=== PATIENT | female | born 1980 | race Caucasian/White ===

== ENCOUNTER 2022-10-25 09:50 | Outpatient (CLI) | payer BC, SELFPAY ==
--- NOTE | ~2022-10-25 | MM_ITS ---
EXAMINATION: MM screening jerrod BI w drake HISTORY: Screening mammogram TECHNIQUE: Craniocaudal and mediolateral oblique 3-D tomosynthesis images were obtained and synthetic 2-D images were generated. Bilateral rotated lateral CC views. CAD analysis was submitted and interp reted. COMPARISON: No prior mammogram is available for comparison at this institution. BREAST PARENCHYMAL COMPOSITION: The breasts are extremely dense, which lowers the sensitivity of mamm ography. FINDINGS: There is no evidence of suspicious mass, calcification, or architectural distortion to sugg est malignancy in either breast. There has been no suspicious interval change. IMPRESSION: 1. No mammographic evidence of malignancy. 2. Recommend routine screening mammography in one year. BI-RADS Category 1: Negative Reviewed, dictated and finalized at location A. [employer]
== END 2022-10-25 09:51 | disposition home or self-care (01) ==
PROVIDERS: Visit Provider Obstetrics & Gynecology
DX: Z12.31 Encounter for screening mammogram for malignant neoplasm of breast (principal)
CPT/HCPCS: 77063; 77067

== ENCOUNTER 2023-01-13 00:22 | Day surgery (SDC) | payer OTHER, SELFPAY ==
[2023-01-08 12:03] VITALS: BMI 20.5
--- NOTE | 2023-01-08 12:13 | PC.NURSE ---
Report to the Outpatient Waiting Room, entrance under the green pavilion located off [facility], at time 0830 on date 01/13/23. Planned Procedure Time: 1030. Time changes happen often and if your time is changed the preop area will call you the afternoon before. - You and your visitor will be asked to self-screen and do not enter if you have any COVID symptoms. - Only one visitor is requested with a max of two and NO children visitors are allowed at this time. - The patient visitor may be requested to leave or wait in car when not with patient due to distancing restrictions. - A mask is optional within the hospital at this time. Patients may have clear liquids (water, carbonated beverages, clear teas, apple juice) until 3 hours prior to surgery with a maximum of 20 ounces. - No food from midnight until time of surgery Take the following medications with a SIP of water the morning of surgery: BUPROPION DO NOT STOP ANY OF YOUR OTHER PRESCRIPTION MEDICATIONS PRIOR TO SURGERY EXCEPT THE FOLLOWING Medications to discontinue per physician: N/A Date to take last dose: N/A Please no make-up, nail frisian, hairspray, perfume, deodorant, or body powder the day of surgery. No jewelry (including any body piercings) or valuables the day of surgery, leave them at home. Please take a shower or bath the night before, or the morning of, surgery with an antibacterial soap. Wear comfortable, loose fitting clothing. - Jewelry must be removed prior to entering the operating room. Rings and piercings that are not removed may be cut off. - The hospital will not accept responsibility for valuables. - Please leave all valuables, including medications, at home the day of surgery. If you are going home after surgery, a licensed company tanker truck driver must drive you home. - NO public transportation without another adult if you receive anesthesia. - We recommend that an adult stay with you for 24 hours following discharge. - We also recommend that you do not drive, make important decision, drink alcoholic beverages, or take any drugs that were not prescribed by your health care provider for at least 24 hours after your discharge time. Follow any additional instructions given to you from your surgeon. If you or anyone in your household have experienced Covid symptoms in the past week, please notify your surgeon or the nurse liaison at the phone number below for possible testing. Telephone instructions given to PT - FLORENCE RUSHING and asked if any additional questions and then verbalized understanding. Patient advised to call surgeon office or pre surgery nurse liaison [phone] if any additional questions.
--- NOTE | 2023-01-12 09:12 | WPDANESEPPF ---
Anes - Initial Pre Proc Eval Procedure: Operation Date: 01/13/23 11:30 Proposed Procedures p Bilateral Breast Augmentation - Derek Parmar MD Date/Time: 01/12/23 09:12 Surgeon: Derek Parmar MD Pre Op Diagnosis: micromastia Patient Data Age: 42 Gender: F Height: 1.65 m Weight: 55.8 kg Allergies Allergy/AdvReac Type Severity Reaction Status Date / Time No Known Allergies Allergy Verified 01/13/23 10:13 Home Medications Medication Instructions Recorded Confirmed Type bupropion HCl 300 mg 24 hr tablet, 300 mg PO DAILY 01/08/23 01/08/23 History extended release norethindrone acetate 1 mg-ethinyl 1 tablet PO DAILY 01/08/23 01/08/23 History estradiol 20 mcg tablet (Microgestin) plecanatide 3 mg tablet (Trulance) 3 mg PO DAILY 01/08/23 01/08/23 History Patient hx anesthesia problems: none Family hx anesthesia problems: hx of malignant hyperthermia Results Review: All pre-operative results and documents have been reviewed as part of the pre-operative evaluation. [facility] Past Medical History Medical History (Updated 01/12/23 @ 09:13 by Kristian Javier DO) Anxiety Depression Family history of malignant hyperthermia Social History Social History Smoking status: Never smoker Alcohol intake: current Alcohol use details: 2/MONTH Substance use: never Substance use type: does not use Living arrangements: with family Spiritual care concerns: No Anes - Eval Final PreProcedure Day of Procedure 01/12/23 09:12 Patient weight: normal Heart: regular rate and rhythm Lungs: clear to auscultation and normal air movement Airway: Mallampati scale class II Neurological: alert and oriented Last oral intake: >/= 8 hours ASA classification: II Emergent: no Anesthetic plan: proceed Anesthesia type and monitoring: general GIVS and standard monitoring Results Review: All pre-operative results and documents have been reviewed as part of the pre-operative evaluation. Informed Consent: The patient's anesthetic plan and its attendant risks and benefits were discussed with the patient/family/POA. Questions were solicited and answers provided to the satisfaction of the patient/family/POA.
[2023-01-13] MEDS: LACTATED RINGERS 1,000 ML 30 ML IV CONT ×2 (09:50→11:28)
--- NOTE | 2023-01-13 09:51 | WPDHPUPDATE1 ---
History and Physical Update Update Date/Time: 01/13/23 09:51 History and Physical has been reviewed, including an updated exam of the patient. There are NO changes in the patient's condition. Risks, benefits, and alternatives have been discussed and questions answered. Patient agrees to proceed with procedure.
--- NOTE | 2023-01-13 10:04 | P.OP_ITS ---
Procedure Note - Detailed Date of Procedure 01/13/23 Pre-op Diagnosis micromastia Post-op Diagnosis Same Procedure Performed Bilateral augmentation mammaplasty with Galaflex Surgeon Derek Parmar MD Anesthesia General Findings Bilateral augmentation mammaplasty 345cc Right - Dual plane 1 REF# [id number] SN [id number] Left - Dual plane 3 REF# [id number] SN [id number] Galaflex REF [id number] Lot [id number] Description of Procedure She is here today for bilateral breast augmentation. Previously and again today the risks, benefits, alternatives were discussed in extensive detail. I wanted her to be very realistic about the risks involved as well as expectations. I wa s very upfront about her differential glandular ptosis and she may need a mastopexy in the future at her expense. We discussed aftercare and what to monitor for. Made sure answered all of her questions to her satisfaction today and consent was obtained. Marked in the preoperative holding area with their verification. The patient was taken to the operating room placed supine on the operating table. Anesthesia was provided by anesthesiology. A surgical time-out was taken. We cleansed the skin and 1% lidocaine and 0.25% Marcaine with epinephrine was used anesthetize as a field block. She was prepped and draped in a standard sterile fashion. Tegaderm nipple Damian were placed. A 15 blade used to make an incision along the inframammary fold. Dissection was continued at 45 degree angle until the chest wall as identified. Elevated in dual plane fashion as above. I incised the pectoralis major along its inferior border and completely released the inferior border leaving the medial border intact. I created a subpectoral pocket in the appropriate dimensions based on our preoperative planning for the implant. I then copiously irrigated with saline solution and verified a strict hemostasis. Next the use a triple antibiotic and Betadine containing solution to irrigate the pocket. I washed my gloves with the triple antibiotic and Betadine solution. We washed the implant immediately upon opening it with this solution and only opened it when we needed it. I used implant funnel and no-touch technique. The implant was introduced into the pocket using the funnel. Having verified positioning of the implant this was closed using 2-0 Vicryl followed by 3-0 Monocryl in a running subcuticular 4-0 Monocryl followed by tissue glue. Fluffs and surgical bra were placed. Patient was awoke and taken to PACU without difficulty. All instrument sponge counts were correct at the end of the case. Estimated Blood Loss 30 Drains No Packing No Pathology None sent Complications No immediate complications Condition Stable Disposition PACU
[2023-01-13] MEDS: SCOPOLAMINE 1.5 MG PATCH TRANSDERM (10:15)
[2023-01-13] MEDS: ceFAZolin 2 GM/D5W 50 ML 2 GM/50 ML BAG IVPB (10:18)
[2023-01-13] MEDS: TRANEXAMIC ACID 1,000MG/ISO100 1,000 MG/100 ML BAG 200 MG IVPB (10:25)
[2023-01-13] MEDS: LIDO 1%/EPINEPHRINE 1:100,000 50 ML VIAL 30 ML INFILTRATE (10:40)
[2023-01-13] MEDS: BUPivacaine HCL 0.25% PF 30 ML VIAL INFILTRATE (10:40)
[2023-01-13] MEDS: NACL 0.9% IRRIG POUR BOTTLE 900 ML, GENTAMICIN SULFATE INJ 160 MG, ceFAZolin 2 GM, POVI... IRRIGATION (10:45)
[2023-01-13 11:28] VITALS: BP 116/73; PULSE 97; RESP 14; TEMP 36.4; O2SAT 100
[2023-01-13 11:40] VITALS: BP 109/70; PULSE 78; RESP 20; O2SAT 100
[2023-01-13] MEDS: fentaNYL CITRATE INJ (*CRX) 100 MCG/2 ML VIAL 25 MCG IV PUSH ×2 (11:51→11:54)
--- NOTE | 2023-01-13 11:52 | SUR.PHASEI ---
1151: Simple mask removed.
[2023-01-13 11:55] VITALS: BP 109/79; PULSE 84; RESP 15; O2SAT 100
[2023-01-13 12:10] VITALS: BP 123/76; PULSE 85; RESP 12; O2SAT 99
[2023-01-13 12:21] VITALS: BP 125/77; PULSE 82
[2023-01-13] MEDS: oxyCODONE HCL (*CRX) 5 MG TAB IR PO (12:39)
[2023-01-13 12:50] VITALS: BP 121/74; PULSE 83
== END 2023-01-13 13:13 | disposition home or self-care (01) ==
PROVIDERS: PCP Physician Assistant; Visit Provider Surgery Plastic and Reconstructive Surgery
PROC: (CPT 19325; principal; 2023-01-13 11:30)
DX: Z41.1 Encounter for cosmetic surgery (principal); N64.82 Hypoplasia of breast; F41.9 Anxiety disorder, unspecified; F32.A Depression, unspecified
CPT/HCPCS: 19325; 15777 ×2; A9270; J0690; J1100; J1170; J1580; J2250; J2405; J2704; J2710; J3010; J7120

== ENCOUNTER 2024-05-31 08:41 | Outpatient (CLI) | payer OTHER, SELFPAY ==
--- NOTE | ~2024-05-31 | MM_ITS ---
EXAMINATION: MM scrn jerrod implant BI w drake HISTORY: Screening mammogram TECHNIQUE: Craniocaudal and mediolateral oblique 3-D tomosynthesis images with implant displacement a nd synthetic 2-D images were generated. Craniocaudal and mediolateral oblique views of the breasts wi thout implant displacement were obtained using full field digital mammography. CAD analysis was submi tted and interpreted. COMPARISON: 10/25/2022 BREAST PARENCHYMAL COMPOSITION: Dense: The breasts are heterogeneously dense, which may obscure small masses FINDINGS: There is no evidence of suspicious mass, calcification, or architectural distortion to sugg est malignancy in either breast. There has been no suspicious interval change. IMPRESSION: 1. No mammographic evidence of malignancy. 2. Recommend routine screening mammography in one year. BI-RADS Category 1: Negative Reviewed, dictated and finalized at location B.
== END 2024-05-31 08:42 | disposition home or self-care (01) ==
LOC: ANHIMG 08:42
PROVIDERS: PCP Physician Assistant; Visit Provider Obstetrics & Gynecology
DX: Z12.31 Encounter for screening mammogram for malignant neoplasm of breast (principal)
CPT/HCPCS: 77063; 77067